=== PATIENT | female | born 1980 | race American Indian/Alaskan Native ===

== ENCOUNTER 2021-08-08 22:11 | Outpatient (CLI) | payer MEDICAID, OTHER ==
[2021-08-08 22:35] VITALS: BP 111/64
[2021-08-08] MEDS ORDERED: LACTATED RINGERS 1,000 ML IV ONE (23:03)
[2021-08-08 23:25] LABS: Bacteria,Urine 1+ /HPF (Negative); Bilirubin,Urine NEG (Negative); Blood,Urine NEG (Negative); Color,Urine Yellow (Yellow); Mucus,Urine 2+ /HPF; Urobilinogen,Urine < 2.0 mg/dL (<2.0)
[2021-08-08] MEDS ORDERED: TERBUTALINE 1 MG/1 ML INJ SUB-Q ONE (23:58)
[2021-08-09] MEDS ORDERED: diphenhydrAMINE 50 MG CAP PO NR (01:00)
== END 2021-08-09 01:07 | disposition home or self-care (01) ==
LOC: TRG 22:11 → APU 22:12 → TRG 08-09 01:07
PROVIDERS: ATTEND Obstetrics & Gynecology
DX: O09.893 Supervision of other high risk pregnancies, third trimester (principal); Z3A.28 28 weeks gestation of pregnancy
CPT/HCPCS: 81001; J0690; J3105; J7120